=== PATIENT | male | born 1970 | race Caucasian/White ===

== ENCOUNTER 2021-04-14 21:33 | Inpatient (IN) | payer MEDICAID ==
[~2021-04-14] VITALS: Ht 185.4 cm; Wt 146.8 kg
[2021-04-14 22:16] LABS: GLUCOMETER DEV NAME(LOC) ERT.5; GLUCOSE,POINT OF CARE 255 MG/DL (70-110)
[2021-04-14 22:22] LABS: COVID AG,FIA SOURCE NASAL SWAB
[2021-04-14 23:17] LABS: BASOPHILS % (AUTO) 0.2 % (0.0-2.0); EOSINOPHILS % (AUTO) 0 % (1.0-6.0); HEMATOCRIT 38.8 % (41-53); HEMOGLOBIN 12.2 g/dL (13.5-17.5); LYMPHOCYTES # (AUTO) 1.1 K/uL (1.0-4.8); LYMPHOCYTES % (AUTO) 7.3 % (22.0-44.0); MEAN CORPUSCULAR HEMOGLOBIN 26.1 pg (26.0-34.0); MEAN CORPUSCULAR HGB CONC 31.4 G/dL (31.0-37.0); MEAN CORPUSCULAR VOLUME 83 fL (80-100); MONOCYTES # (AUTO) 1.1 K/uL (0.1-1.0); MONOCYTES % (AUTO) 7.5 % (2.0-9.0); NEUTROPHILS # (AUTO) 12.3 K/uL (1.8-7.7); PLATELET COUNT (AUTO) 244 K/uL (150-450); RED BLOOD CELL COUNT(AUTO) 4.67 MIL/uL (4.50-5.90); RED CELL DISTRIBUTION WIDTH 17.8 % (11.5-14.5)
[2021-04-14 23:25] LABS: CALCIUM, TOTAL 9.1 mg/dL (8.8-10.5); CREATININE 1.36 mg/dL (0.60-1.30); POTASSIUM 3.8 mmol/L (3.5-5.1)
[2021-04-14 23:28] LABS: INR 1.3 (0.9-1.1)
[2021-04-14 23:32] LABS: ALBUMIN 3.6 g/dL (3.4-5.0); TOTAL PROTEIN, SERUM 8.1 g/dL (6.4-8.2)
[2021-04-14] MEDS ORDERED: ONDANSETRON HCL 4 MG/2 ML VIAL IVP PRN (23:45)
[2021-04-15] MEDS ORDERED: HEPARIN SODIUM,PORCINE 5,000 UNITS/ML VIAL SQ SCH
[2021-04-15] MEDS ORDERED: SENN8.8S18 PO (00:13)
[2021-04-15] MEDS ORDERED: RIVA20TA PO (00:13)
[2021-04-15] MEDS ORDERED: LEVE500T8 PO (00:13)
[2021-04-15] MEDS ORDERED: [UNRECOGNIZED DRUG - OTHER] BU (00:13)
[2021-04-15] MEDS ORDERED: ATOR40TA71 PO (00:13)
[2021-04-15] MEDS ORDERED: LASIX BU (00:13)
[2021-04-15] MEDS ORDERED: INSLAN SQ (00:13)
[2021-04-15] MEDS ORDERED: solumedrol FLUSH (00:13)
[2021-04-15] MEDS ORDERED: VALS80TA2 PO (00:13)
[2021-04-15] MEDS ORDERED: SPIR-37 PO (00:13)
[2021-04-15] MEDS ORDERED: METO25TA3 PO (00:13)
[2021-04-15] MEDS ORDERED: IPRA3AMP24 NEB (00:13)
[2021-04-15] MEDS ORDERED: AMIO100T4 PO (00:13)
[2021-04-15] MEDS ORDERED: IPRATROPIUM BROMIDE 0.5 MG/2.5 ML NEB SOLUTION NEB PRN (00:30)
[2021-04-15] MEDS ORDERED: ALBUTEROL SULFATE 2.5 MG/0.5 ML NEB SOLUTION NEB PRN (00:30)
[2021-04-15] MEDS ORDERED: DEXTROSE 50%-WATER 25 GM/50 ML SYRINGE IVP PRN ×2 (00:30→05:30)
[2021-04-15 03:51] VITALS: BP 135/84
[2021-04-15] MEDS ORDERED: INFLUENZA VIRUS VACCINE QVS 2021-22 (6MO+)/PF 60 MCG/0.5 ML SYRINGE IM. ONE (05:15)
[2021-04-15] MEDS ORDERED: SENNA 218 MG/5 ML LIQUID ORAL.SYG PO SCH (06:00)
[2021-04-15 06:21] LABS: GLUCOMETER DEV NAME(LOC) 6N.1; GLUCOSE,POINT OF CARE 242 MG/DL (70-110)
[2021-04-15] MEDS: INSULIN LISPRO 100 UNITS/ML SQ PRN ×4 (06:45→21:44)
[2021-04-15 07:30] VITALS: BP 124/84
[2021-04-15 07:49] LABS: BASOPHILS % (AUTO) 0.2 % (0.0-2.0); EOSINOPHILS % (AUTO) 0.1 % (1.0-6.0); HEMATOCRIT 36.9 % (41-53); HEMOGLOBIN 11.8 g/dL (13.5-17.5); LYMPHOCYTES # (AUTO) 1.4 K/uL (1.0-4.8); LYMPHOCYTES % (AUTO) 10.9 % (22.0-44.0); MEAN CORPUSCULAR HEMOGLOBIN 26.6 pg (26.0-34.0); MEAN CORPUSCULAR HGB CONC 32.1 G/dL (31.0-37.0); MEAN CORPUSCULAR VOLUME 83 fL (80-100); MONOCYTES % (AUTO) 7.6 % (2.0-9.0); NEUTROPHILS # (AUTO) 10.3 K/uL (1.8-7.7); NEUTROPHILS % (AUTO) 81.2 % (40.0-70.0); PLATELET COUNT (AUTO) 211 K/uL (150-450); RED BLOOD CELL COUNT(AUTO) 4.44 MIL/uL (4.50-5.90); RED CELL DISTRIBUTION WIDTH 17.3 % (11.5-14.5)
[2021-04-15 08:04] LABS: CALCIUM, TOTAL 8.8 mg/dL (8.8-10.5); CREATININE 1.38 mg/dL (0.60-1.30); POTASSIUM 3.9 mmol/L (3.5-5.1)
[2021-04-15] MEDS: LevETIRAcetam 500 MG TABLET PO SCH ×2 (08:57→21:15)
[2021-04-15] MEDS: AMIODARONE HCL 200 MG TABLET PO SCH ×2 (08:57→21:20)
[2021-04-15] MEDS: VALSARTAN 80 MG TABLET PO SCH ×2 (08:57→21:00)
[2021-04-15] MEDS: SPIRONOLACTONE 25 MG TABLET PO SCH (08:58)
[2021-04-15] MEDS ORDERED: MISC MED-CONVERTED FROM AMBULATORY (Ipratropium/Albuterol Sulfate (Duoneb 2.5-0.5 Mg/3 Ml NEB SCH (09:00)
[2021-04-15] MEDS: METOPROLOL SUCCINATE 25 MG ER TABLET PO SCH (09:02)
[2021-04-15] MEDS: FUROSEMIDE 20 MG/2 ML VIAL IVP SCH ×2 (09:02→21:05)
[2021-04-15] MEDS: RIVAROXABAN 20 MG TABLET PO SCH ×2 (09:02→09:41)
[2021-04-15] MEDS: FAMOTIDINE 10 MG/ML 2 ML VIAL IVP SCH ×3 (09:03→21:15)
[2021-04-15] MEDS: MethylPREDNISolone SOD SUCC 40 MG/ML VIAL IVP SCH (09:03)
[2021-04-15 15:57] VITALS: BP 130/82
[2021-04-15 18:21] LABS: AMPHET/METH SCREEN,URINE POSITIVE (NEGATIVE); BARBITURATE SCREEN, URINE NEGATIVE (NEGATIVE); BENZODIAZEPINES SCREEN,URINE NEGATIVE (NEGATIVE); CANNABINOID SCREEN,URINE NEGATIVE (NEGATIVE); COCAINE SCREEN,URINE NEGATIVE (NEGATIVE); CREATININE,URINE RANDOM 115.1 mg/dL (30.0-125.0); METHADONE SCREEN, URINE NEGATIVE (NEGATIVE); OPIATE SCREEN,URINE NEGATIVE (NEGATIVE); SODIUM,URINE RANDOM 49 mmol/l (20-110)
[2021-04-15 18:22] LABS: APPEARANCE,URINE TURBID (CLEAR); GLUCOSE, URINE (UA) NEGATIVE (NEGATIVE); KETONES,URINE 40 mg/dL (NEGATIVE); LEUKOCYTE ESTERASE ,URINE LARGE (NEGATIVE); NITRATE,URINE POSITIVE (NEGATIVE); OCCULT BLOOD,URINE LARGE (NEGATIVE); PROTEIN,URINE SEE CONFIRM (NEGATIVE)
[2021-04-15 18:23] LABS: BILIRUBIN,URINE PRELIM. POSITIVE (NEGATIVE)
[2021-04-15 18:24] LABS: PHENCYCLIDINE SCREEN,URINE NEGATIVE (NEGATIVE)
[2021-04-15 18:41] LABS: BACTERIA,URINE None Seen /HPF (None Seen); RBC,URINE Full Field /HPF (0-2); WBC,URINE None Seen /HPF (0-5)
[2021-04-15 18:43] LABS: SULFOSALICYLIC ACID,URINE 4+ (Negative)
[2021-04-15 19:26] LABS: GLUCOMETER DEV NAME(LOC) 4E.2; GLUCOSE,POINT OF CARE 255 MG/DL (70-110)
[2021-04-15 19:39] VITALS: BP 113/71
[2021-04-15] MEDS ORDERED: RIVAROXABAN 20 MG TABLET PO SCH (21:00)
[2021-04-15] MEDS: ATORVASTATIN CALCIUM 40 MG TABLET PO SCH (21:04)
[2021-04-15] MEDS: ACETAMINOPHEN 325 MG TABLET PO PRN (21:06)
[2021-04-15] MEDS: INSULIN GLARGINE,HUM.REC.ANLOG 100 UNITS/ML SQ SCH (21:40)
[2021-04-15] MEDS ORDERED: OxyCODONE HCL/ACETAMINOPHEN 5-325 MG TABLET PO ONE (22:30)
[2021-04-16 05:17] VITALS: BP 121/61
[2021-04-16] MEDS: SENNOSIDES 8.8 MG/5 ML SYRUP ORAL.SYG PO SCH (06:30)
[2021-04-16 06:41] LABS: GLUCOMETER DEV NAME(LOC) 6N.2; GLUCOSE,POINT OF CARE 236 MG/DL (70-110)
[2021-04-16] MEDS: INSULIN LISPRO 100 UNITS/ML SQ PRN ×4 (06:44→21:06)
[2021-04-16 08:09] VITALS: BP 137/93
[2021-04-16] MEDS: AMIODARONE HCL 200 MG TABLET PO SCH ×2 (08:25→20:48)
[2021-04-16] MEDS: VALSARTAN 80 MG TABLET PO SCH ×2 (08:25→21:11)
[2021-04-16] MEDS: LevETIRAcetam 500 MG TABLET PO SCH ×2 (08:25→20:47)
[2021-04-16] MEDS: METOPROLOL SUCCINATE 25 MG ER TABLET PO SCH (08:26)
[2021-04-16] MEDS: SPIRONOLACTONE 25 MG TABLET PO SCH (08:26)
[2021-04-16] MEDS: RIVAROXABAN 20 MG TABLET PO SCH (08:26)
[2021-04-16] MEDS: MethylPREDNISolone SOD SUCC 40 MG/ML VIAL IVP SCH (08:27)
[2021-04-16] MEDS: FAMOTIDINE 10 MG/ML 2 ML VIAL IVP SCH ×2 (08:27→20:47)
[2021-04-16] MEDS: FUROSEMIDE 20 MG/2 ML VIAL IVP SCH ×2 (08:27→20:47)
[2021-04-16 09:31] LABS: GLUCOMETER DEV NAME(LOC) 6N.2; GLUCOSE,POINT OF CARE 182 MG/DL (70-110)
[2021-04-16 09:36] LABS: GLUCOMETER DEV NAME(LOC) 6N.1; GLUCOSE,POINT OF CARE 403 MG/DL (70-110)
[2021-04-16] MEDS ORDERED: PERFLUTREN PROTEIN-A MICROSPHERES 0.22 MG/ML 3 ML VIAL IVP ONE (10:30)
[2021-04-16 16:14] VITALS: BP 117/80
[2021-04-16] MEDS ORDERED: AMIO200T68 PO (16:17)
[2021-04-16] MEDS ORDERED: ATOR40TA28 PO (16:17)
[2021-04-16] MEDS ORDERED: TIOT4MIS3 IH (16:17)
[2021-04-16] MEDS ORDERED: METF-444 PO (16:17)
[2021-04-16] MEDS: ALPRAZolam 0.25 MG TABLET PO PRN (16:23)
[2021-04-16 20:47] VITALS: BP 128/79
[2021-04-16] MEDS: ATORVASTATIN CALCIUM 40 MG TABLET PO SCH (20:48)
[2021-04-16 21:01] LABS: GLUCOMETER DEV NAME(LOC) 6N.2; GLUCOSE,POINT OF CARE 265 MG/DL (70-110)
[2021-04-16 21:01] LABS: GLUCOMETER DEV NAME(LOC) 6N.1; GLUCOSE,POINT OF CARE 285 MG/DL (70-110)
[2021-04-16] MEDS: INSULIN GLARGINE,HUM.REC.ANLOG 100 UNITS/ML SQ SCH (21:06)
[2021-04-16 21:31] LABS: GLUCOMETER DEV NAME(LOC) 4E.2; GLUCOSE,POINT OF CARE 315 MG/DL (70-110)
[2021-04-16 23:00] LABS: BASOPHILS % (AUTO) 0.7 % (0.0-2.0); EOSINOPHILS % (AUTO) 0.1 % (1.0-6.0); HEMATOCRIT 37.7 % (41-53); MEAN CORPUSCULAR HEMOGLOBIN 26.2 pg (26.0-34.0); MEAN CORPUSCULAR HGB CONC 31.9 G/dL (31.0-37.0); MEAN CORPUSCULAR VOLUME 82 fL (80-100); MONOCYTES # (AUTO) 0.8 K/uL (0.1-1.0); MONOCYTES % (AUTO) 6.6 % (2.0-9.0); NEUTROPHILS # (AUTO) 10.3 K/uL (1.8-7.7); NEUTROPHILS % (AUTO) 84.6 % (40.0-70.0); PLATELET COUNT (AUTO) 221 K/uL (150-450); RED BLOOD CELL COUNT(AUTO) 4.59 MIL/uL (4.50-5.90); RED CELL DISTRIBUTION WIDTH 17.3 % (11.5-14.5)
[2021-04-16 23:10] LABS: ANION GAP 6 mmol/L (8-16); CARBON DIOXIDE 30 mmol/L (22-29); CHLORIDE 99 mmol/L (98-107); CREATININE 1.14 mg/dL (0.60-1.30); GLOMERULAR FILTR. RATE CALC > 60 mL/min (>60); GLUCOSE,RANDOM 309 mg/dL (70-110); POTASSIUM 4.9 mmol/L (3.5-5.1); SODIUM SERUM 135 mmol/L (136-145); UREA NITROGEN, BLOOD 28 mg/dL (7-18)
[2021-04-16 23:15] LABS: ALANINE AMINOTRANSFERASE 24 U/L (12-78); ALBUMIN 3.5 g/dL (3.4-5.0); ALKALINE PHOSPHATASE 123 U/L (46-116); ASPARTATE AMINOTRANSFERASE 14 U/L (15-37); BILIRUBIN,TOTAL 1.3 mg/dL (0.1-1.0); TOTAL PROTEIN, SERUM 7.4 g/dL (6.4-8.2)
[2021-04-16] MEDS: DOXYCYCLINE HYCLATE 100 MG in DEXTROSE 5%-WATER 100 ML IV SCH (23:58)
[2021-04-17 05:03] VITALS: BP 120/73
[2021-04-17] MEDS: SENNOSIDES 8.8 MG/5 ML SYRUP ORAL.SYG PO SCH (05:58)
[2021-04-17] MEDS: INSULIN LISPRO 100 UNITS/ML SQ PRN ×3 (06:31→17:21)
[2021-04-17 07:48] LABS: BASOPHILS % (AUTO) 0.1 % (0.0-2.0); EOSINOPHILS % (AUTO) 0.3 % (1.0-6.0); HEMATOCRIT 37.8 % (41-53); HEMOGLOBIN 12.2 g/dL (13.5-17.5); LYMPHOCYTES # (AUTO) 1.8 K/uL (1.0-4.8); LYMPHOCYTES % (AUTO) 15.1 % (22.0-44.0); MEAN CORPUSCULAR HEMOGLOBIN 26.5 pg (26.0-34.0); MEAN CORPUSCULAR HGB CONC 32.2 G/dL (31.0-37.0); MEAN CORPUSCULAR VOLUME 82 fL (80-100); MONOCYTES % (AUTO) 8.5 % (2.0-9.0); PLATELET COUNT (AUTO) 227 K/uL (150-450); RED CELL DISTRIBUTION WIDTH 17.3 % (11.5-14.5)
[2021-04-17 07:54] VITALS: BP 124/68
[2021-04-17 08:08] LABS: ALANINE AMINOTRANSFERASE 22 U/L (12-78); ALBUMIN 3.4 g/dL (3.4-5.0); ALKALINE PHOSPHATASE 120 U/L (46-116); ANION GAP 8 mmol/L (8-16); ASPARTATE AMINOTRANSFERASE 14 U/L (15-37); BILIRUBIN,TOTAL 1.5 mg/dL (0.1-1.0); CALCIUM, TOTAL 8.9 mg/dL (8.8-10.5); CARBON DIOXIDE 30 mmol/L (22-29); CHLORIDE 98 mmol/L (98-107); CREATININE 1.15 mg/dL (0.60-1.30); GLOMERULAR FILTR. RATE CALC > 60 mL/min (>60); GLUCOSE,RANDOM 259 mg/dL (70-110); POTASSIUM 3.9 mmol/L (3.5-5.1); SODIUM SERUM 136 mmol/L (136-145); TOTAL PROTEIN, SERUM 7.2 g/dL (6.4-8.2); UREA NITROGEN, BLOOD 26 mg/dL (7-18)
[2021-04-17] MEDS: METOPROLOL SUCCINATE 25 MG ER TABLET PO SCH (09:00)
[2021-04-17] MEDS: AMIODARONE HCL 200 MG TABLET PO SCH ×2 (09:14→21:22)
[2021-04-17] MEDS: VALSARTAN 80 MG TABLET PO SCH ×2 (09:14→21:23)
[2021-04-17] MEDS: LevETIRAcetam 500 MG TABLET PO SCH ×2 (09:14→21:22)
[2021-04-17] MEDS: RIVAROXABAN 20 MG TABLET PO SCH (09:14)
[2021-04-17] MEDS: FAMOTIDINE 10 MG/ML 2 ML VIAL IVP SCH ×2 (09:14→21:23)
[2021-04-17] MEDS ORDERED: SODIUM CHLORIDE 0.9% 500 ML IV ONE (10:23)
[2021-04-17] MEDS: DOXYCYCLINE HYCLATE 100 MG in DEXTROSE 5%-WATER 100 ML IV SCH (10:40)
[2021-04-17 11:06] VITALS: BP 104/60
[2021-04-17 11:51] LABS: GLUCOMETER DEV NAME(LOC) 6N.1; GLUCOSE,POINT OF CARE 383 MG/DL (70-110)
[2021-04-17] MEDS: MethylPREDNISolone SOD SUCC 40 MG/ML VIAL IVP SCH (12:05)
[2021-04-17] MEDS: ACETAMINOPHEN 325 MG TABLET PO PRN (12:34)
[2021-04-17] MEDS: CefTRIAXone 1 GM/DEXTROSE 50 ML IV SCH (12:39)
[2021-04-17] MEDS: ALPRAZolam 0.25 MG TABLET PO PRN (13:07)
[2021-04-17] MEDS: SPIRONOLACTONE 25 MG TABLET PO SCH (13:13)
[2021-04-17] MEDS: FUROSEMIDE 20 MG/2 ML VIAL IVP SCH ×2 (13:13→21:23)
[2021-04-17 13:20] VITALS: BP_SYST 126; BP_SYST 131; BP_DIAS 72; BP_DIAS 85
[2021-04-17 17:26] LABS: GLUCOMETER DEV NAME(LOC) 4E.2; GLUCOSE,POINT OF CARE 284 MG/DL (70-110)
[2021-04-17 19:26] LABS: GLUCOMETER DEV NAME(LOC) 4E.2; GLUCOSE,POINT OF CARE 229 MG/DL (70-110)
[2021-04-17 20:12] VITALS: BP 106/36
[2021-04-17 20:51] LABS: GLUCOMETER DEV NAME(LOC) 4E.2; GLUCOSE,POINT OF CARE 370 MG/DL (70-110)
[2021-04-17] MEDS: INSULIN GLARGINE,HUM.REC.ANLOG 100 UNITS/ML SQ SCH (21:13)
[2021-04-17] MEDS: ATORVASTATIN CALCIUM 40 MG TABLET PO SCH (21:22)
[2021-04-17 23:39] VITALS: BP 115/84
[2021-04-18] MEDS: DOXYCYCLINE HYCLATE 100 MG in DEXTROSE 5%-WATER 100 ML IV SCH ×3 (00:29→23:12)
[2021-04-18 04:45] VITALS: BP 115/72
[2021-04-18] MEDS: INSULIN LISPRO 100 UNITS/ML SQ PRN ×3 (06:27→20:39)
[2021-04-18] MEDS: SENNOSIDES 8.8 MG/5 ML SYRUP ORAL.SYG PO SCH (06:31)
[2021-04-18 06:36] LABS: GLUCOMETER DEV NAME(LOC) 6N.1; GLUCOSE,POINT OF CARE 260 MG/DL (70-110)
[2021-04-18] MEDS: LevETIRAcetam 500 MG TABLET PO SCH ×2 (08:40→20:31)
[2021-04-18] MEDS: RIVAROXABAN 20 MG TABLET PO SCH (08:42)
[2021-04-18] MEDS: FAMOTIDINE 10 MG/ML 2 ML VIAL IVP SCH ×2 (08:42→20:30)
[2021-04-18 08:44] VITALS: BP 120/74
[2021-04-18] MEDS: INSULIN GLARGINE,HUM.REC.ANLOG 100 UNITS/ML SQ SCH ×2 (08:45→20:38)
[2021-04-18] MEDS: METOPROLOL SUCCINATE 25 MG ER TABLET PO SCH (08:46)
[2021-04-18 08:47] VITALS: BP 104/69
[2021-04-18] MEDS: CefTRIAXone 1 GM/DEXTROSE 50 ML IV SCH (11:33)
[2021-04-18 11:36] LABS: GLUCOMETER DEV NAME(LOC) 6N.2; GLUCOSE,POINT OF CARE 255 MG/DL (70-110)
[2021-04-18] MEDS: SPIRONOLACTONE 25 MG TABLET PO SCH (11:41)
[2021-04-18] MEDS: FUROSEMIDE 20 MG/2 ML VIAL IVP SCH ×2 (11:41→20:28)
[2021-04-18] MEDS: AMIODARONE HCL 200 MG TABLET PO SCH ×2 (11:41→20:30)
[2021-04-18] MEDS: VALSARTAN 80 MG TABLET PO SCH ×2 (11:42→20:30)
[2021-04-18 11:55] LABS: BASOPHILS % (AUTO) 0.1 % (0.0-2.0); EOSINOPHILS % (AUTO) 0.3 % (1.0-6.0); HEMATOCRIT 36.5 % (41-53); HEMOGLOBIN 11.9 g/dL (13.5-17.5); LYMPHOCYTES # (AUTO) 1.6 K/uL (1.0-4.8); LYMPHOCYTES % (AUTO) 14.8 % (22.0-44.0); MEAN CORPUSCULAR HEMOGLOBIN 26.7 pg (26.0-34.0); MEAN CORPUSCULAR HGB CONC 32.7 G/dL (31.0-37.0); MEAN CORPUSCULAR VOLUME 82 fL (80-100); MONOCYTES # (AUTO) 0.8 K/uL (0.1-1.0); MONOCYTES % (AUTO) 7.6 % (2.0-9.0); NEUTROPHILS # (AUTO) 8.3 K/uL (1.8-7.7); NEUTROPHILS % (AUTO) 77.2 % (40.0-70.0); PLATELET COUNT (AUTO) 207 K/uL (150-450); RED BLOOD CELL COUNT(AUTO) 4.47 MIL/uL (4.50-5.90); RED CELL DISTRIBUTION WIDTH 17.2 % (11.5-14.5)
[2021-04-18 12:06] LABS: GLUCOMETER DEV NAME(LOC) 6N.1; GLUCOSE,POINT OF CARE 106 MG/DL (70-110)
[2021-04-18 12:16] LABS: ALANINE AMINOTRANSFERASE 27 U/L (12-78); ALBUMIN 3.3 g/dL (3.4-5.0); ALKALINE PHOSPHATASE 115 U/L (46-116); ANION GAP 8 mmol/L (8-16); ASPARTATE AMINOTRANSFERASE 16 U/L (15-37); BILIRUBIN,TOTAL 1.3 mg/dL (0.1-1.0); CARBON DIOXIDE 31 mmol/L (22-29); CHLORIDE 99 mmol/L (98-107); CREATININE 1.03 mg/dL (0.60-1.30); GLOMERULAR FILTR. RATE CALC > 60 mL/min (>60); GLUCOSE,RANDOM 189 mg/dL (70-110); POTASSIUM 3.9 mmol/L (3.5-5.1); SODIUM SERUM 138 mmol/L (136-145); TOTAL PROTEIN, SERUM 7.1 g/dL (6.4-8.2); UREA NITROGEN, BLOOD 24 mg/dL (7-18)
[2021-04-18] MEDS: ACETAMINOPHEN 325 MG TABLET PO PRN ×2 (12:33→19:49)
[2021-04-18] MEDS: ALPRAZolam 0.25 MG TABLET PO PRN ×2 (12:37→19:46)
[2021-04-18 14:29] VITALS: BP 142/85
[2021-04-18 19:06] LABS: GLUCOMETER DEV NAME(LOC) 4E.2; GLUCOSE,POINT OF CARE 234 MG/DL (70-110)
[2021-04-18 19:52] VITALS: BP 105/59
[2021-04-18] MEDS: ATORVASTATIN CALCIUM 40 MG TABLET PO SCH (20:30)
[2021-04-18] MEDS: ALBUTEROL SULFATE 2.5 MG/0.5 ML NEB SOLUTION NEB PRN (21:05)
[2021-04-18] MEDS: IPRATROPIUM BROMIDE 0.5 MG/2.5 ML NEB SOLUTION NEB PRN (21:05)
[2021-04-18 21:46] LABS: GLUCOMETER DEV NAME(LOC) 4E.2; GLUCOSE,POINT OF CARE 298 MG/DL (70-110)
[2021-04-19] MEDS: ALPRAZolam 0.25 MG TABLET PO PRN (03:36)
[2021-04-19 04:36] VITALS: BP 103/56
[2021-04-19] MEDS: IPRATROPIUM BROMIDE 0.5 MG/2.5 ML NEB SOLUTION NEB PRN (05:45)
[2021-04-19] MEDS: ALBUTEROL SULFATE 2.5 MG/0.5 ML NEB SOLUTION NEB PRN (05:45)
[2021-04-19] MEDS: SENNOSIDES 8.8 MG/5 ML SYRUP ORAL.SYG PO SCH (06:30)
[2021-04-19] MEDS: INSULIN LISPRO 100 UNITS/ML SQ PRN ×2 (06:35→22:01)
[2021-04-19 07:06] LABS: GLUCOMETER DEV NAME(LOC) 4E.2; GLUCOSE,POINT OF CARE 319 MG/DL (70-110)
[2021-04-19 07:54] VITALS: BP 107/65
[2021-04-19 10:58] LABS: BASOPHILS % (AUTO) 0.4 % (0.0-2.0); EOSINOPHILS % (AUTO) 1.5 % (1.0-6.0); HEMOGLOBIN 11.8 g/dL (13.5-17.5); LYMPHOCYTES # (AUTO) 1.3 K/uL (1.0-4.8); LYMPHOCYTES % (AUTO) 15.3 % (22.0-44.0); MEAN CORPUSCULAR HEMOGLOBIN 26.3 pg (26.0-34.0); MEAN CORPUSCULAR VOLUME 82 fL (80-100); MONOCYTES # (AUTO) 0.9 K/uL (0.1-1.0); MONOCYTES % (AUTO) 10.5 % (2.0-9.0); NEUTROPHILS # (AUTO) 6.3 K/uL (1.8-7.7); NEUTROPHILS % (AUTO) 72.3 % (40.0-70.0); PLATELET COUNT (AUTO) 195 K/uL (150-450); RED CELL DISTRIBUTION WIDTH 17.5 % (11.5-14.5)
[2021-04-19 11:18] LABS: ALANINE AMINOTRANSFERASE 37 U/L (12-78); ALBUMIN 3.3 g/dL (3.4-5.0); ALKALINE PHOSPHATASE 125 U/L (46-116); ANION GAP 9 mmol/L (8-16); ASPARTATE AMINOTRANSFERASE 15 U/L (15-37); CALCIUM, TOTAL 8.9 mg/dL (8.8-10.5); CARBON DIOXIDE 30 mmol/L (22-29); CHLORIDE 98 mmol/L (98-107); CREATININE 1.11 mg/dL (0.60-1.30); GLOMERULAR FILTR. RATE CALC > 60 mL/min (>60); GLUCOSE,RANDOM 253 mg/dL (70-110); SODIUM SERUM 137 mmol/L (136-145); TOTAL PROTEIN, SERUM 7.1 g/dL (6.4-8.2); UREA NITROGEN, BLOOD 23 mg/dL (7-18)
[2021-04-19] MEDS ORDERED: SODIUM CHLORIDE 0.9% 250 ML IV ONE (11:18)
[2021-04-19] MEDS: VALSARTAN 80 MG TABLET PO SCH ×2 (11:26→21:54)
[2021-04-19] MEDS: AMIODARONE HCL 200 MG TABLET PO SCH ×2 (11:27→21:01)
[2021-04-19] MEDS: METOPROLOL SUCCINATE 25 MG ER TABLET PO SCH (11:27)
[2021-04-19] MEDS: RIVAROXABAN 20 MG TABLET PO SCH (11:27)
[2021-04-19] MEDS: FAMOTIDINE 10 MG/ML 2 ML VIAL IVP SCH ×2 (11:27→21:54)
[2021-04-19] MEDS: FUROSEMIDE 20 MG/2 ML VIAL IVP SCH ×2 (11:28→21:07)
[2021-04-19] MEDS: SPIRONOLACTONE 25 MG TABLET PO SCH (11:28)
[2021-04-19] MEDS: LevETIRAcetam 500 MG TABLET PO SCH ×2 (11:28→21:01)
[2021-04-19] MEDS: DOXYCYCLINE HYCLATE 100 MG in DEXTROSE 5%-WATER 100 ML IV SCH ×2 (11:29→23:21)
[2021-04-19] MEDS: CefTRIAXone 1 GM/DEXTROSE 50 ML IV SCH (11:29)
[2021-04-19] MEDS: INSULIN GLARGINE,HUM.REC.ANLOG 100 UNITS/ML SQ SCH ×2 (11:35→21:59)
[2021-04-19 13:56] VITALS: BP 126/80
[2021-04-19 17:47] LABS: GLUCOMETER DEV NAME(LOC) 6N.2; GLUCOSE,POINT OF CARE 215 MG/DL (70-110)
[2021-04-19 19:30] VITALS: BP 119/62
[2021-04-19 19:41] LABS: GLUCOMETER DEV NAME(LOC) 6N.1; GLUCOSE,POINT OF CARE 137 MG/DL (70-110)
[2021-04-19] MEDS: ATORVASTATIN CALCIUM 40 MG TABLET PO SCH (21:07)
[2021-04-19 21:41] LABS: GLUCOMETER DEV NAME(LOC) 6N.2; GLUCOSE,POINT OF CARE 258 MG/DL (70-110)
[2021-04-20] MEDS: ALPRAZolam 0.25 MG TABLET PO PRN ×2 (01:46→21:50)
[2021-04-20 03:30] VITALS: BP 123/75
[2021-04-20 04:30] VITALS: BP 110/57
[2021-04-20] MEDS: INSULIN LISPRO 100 UNITS/ML SQ PRN ×3 (05:55→19:50)
[2021-04-20] MEDS: SENNOSIDES 8.8 MG/5 ML SYRUP ORAL.SYG PO SCH (06:01)
[2021-04-20 07:13] LABS: BASOPHILS % (AUTO) 0.4 % (0.0-2.0); EOSINOPHILS % (AUTO) 2.6 % (1.0-6.0); HEMATOCRIT 36.7 % (41-53); LYMPHOCYTES # (AUTO) 1.5 K/uL (1.0-4.8); LYMPHOCYTES % (AUTO) 17.6 % (22.0-44.0); MEAN CORPUSCULAR HEMOGLOBIN 26.6 pg (26.0-34.0); MEAN CORPUSCULAR HGB CONC 32.6 G/dL (31.0-37.0); MEAN CORPUSCULAR VOLUME 82 fL (80-100); MONOCYTES # (AUTO) 0.9 K/uL (0.1-1.0); MONOCYTES % (AUTO) 10.5 % (2.0-9.0); NEUTROPHILS % (AUTO) 68.9 % (40.0-70.0); PLATELET COUNT (AUTO) 207 K/uL (150-450); RED CELL DISTRIBUTION WIDTH 17.6 % (11.5-14.5)
[2021-04-20 07:27] LABS: ALANINE AMINOTRANSFERASE 38 U/L (12-78); ALBUMIN 3.4 g/dL (3.4-5.0); ALKALINE PHOSPHATASE 126 U/L (46-116); ANION GAP 6 mmol/L (8-16); ASPARTATE AMINOTRANSFERASE 16 U/L (15-37); CALCIUM, TOTAL 8.9 mg/dL (8.8-10.5); CARBON DIOXIDE 31 mmol/L (22-29); CHLORIDE 97 mmol/L (98-107); CREATININE 1.02 mg/dL (0.60-1.30); GLOMERULAR FILTR. RATE CALC > 60 mL/min (>60); GLUCOSE,RANDOM 229 mg/dL (70-110); POTASSIUM 4.2 mmol/L (3.5-5.1); SODIUM SERUM 134 mmol/L (136-145); TOTAL PROTEIN, SERUM 7.2 g/dL (6.4-8.2); UREA NITROGEN, BLOOD 21 mg/dL (7-18)
[2021-04-20 08:15] VITALS: BP 129/71
[2021-04-20] MEDS: CefTRIAXone 1 GM/DEXTROSE 50 ML IV SCH (10:51)
[2021-04-20] MEDS: DOXYCYCLINE HYCLATE 100 MG in DEXTROSE 5%-WATER 100 ML IV SCH ×2 (10:53→22:42)
[2021-04-20] MEDS: LevETIRAcetam 500 MG TABLET PO SCH ×2 (10:54→20:56)
[2021-04-20] MEDS: METOPROLOL SUCCINATE 25 MG ER TABLET PO SCH (10:54)
[2021-04-20] MEDS: AMIODARONE HCL 200 MG TABLET PO SCH ×2 (10:54→20:56)
[2021-04-20] MEDS: VALSARTAN 80 MG TABLET PO SCH ×2 (10:54→21:50)
[2021-04-20] MEDS: FAMOTIDINE 10 MG/ML 2 ML VIAL IVP SCH ×2 (10:55→20:48)
[2021-04-20] MEDS: FUROSEMIDE 20 MG/2 ML VIAL IVP SCH ×2 (10:55→20:47)
[2021-04-20] MEDS: ATORVASTATIN CALCIUM 40 MG TABLET PO SCH (10:55)
[2021-04-20] MEDS: SPIRONOLACTONE 25 MG TABLET PO SCH (10:55)
[2021-04-20] MEDS: RIVAROXABAN 20 MG TABLET PO SCH (11:14)
[2021-04-20] MEDS: INSULIN GLARGINE,HUM.REC.ANLOG 100 UNITS/ML SQ SCH ×2 (11:17→19:49)
[2021-04-20 11:31] LABS: GLUCOMETER DEV NAME(LOC) 4E.2; GLUCOSE,POINT OF CARE 197 MG/DL (70-110)
[2021-04-20 15:56] VITALS: BP 110/77
[2021-04-20 17:15] LABS: GLUCOMETER DEV NAME(LOC) 6N.2; GLUCOSE,POINT OF CARE 265 MG/DL (70-110)
[2021-04-20 19:29] VITALS: BP 102/56
[2021-04-20 19:56] LABS: GLUCOMETER DEV NAME(LOC) 6N.2; GLUCOSE,POINT OF CARE 216 MG/DL (70-110)
[2021-04-20] MEDS: ACETAMINOPHEN 325 MG TABLET PO PRN (20:57)
[2021-04-21 03:05] VITALS: BP 114/76
[2021-04-21] MEDS: SENNOSIDES 8.8 MG/5 ML SYRUP ORAL.SYG PO SCH (05:48)
[2021-04-21] MEDS: INSULIN LISPRO 100 UNITS/ML SQ PRN ×3 (05:50→20:34)
[2021-04-21 06:12] LABS: GLUCOMETER DEV NAME(LOC) 6N.2; GLUCOSE,POINT OF CARE 168 MG/DL (70-110)
[2021-04-21 06:39] LABS: BASOPHILS % (AUTO) 0.2 % (0.0-2.0); EOSINOPHILS % (AUTO) 3.5 % (1.0-6.0); HEMATOCRIT 35.6 % (41-53); HEMOGLOBIN 11.5 g/dL (13.5-17.5); LYMPHOCYTES # (AUTO) 1.7 K/uL (1.0-4.8); LYMPHOCYTES % (AUTO) 20.7 % (22.0-44.0); MEAN CORPUSCULAR HEMOGLOBIN 26.6 pg (26.0-34.0); MEAN CORPUSCULAR HGB CONC 32.3 G/dL (31.0-37.0); MEAN CORPUSCULAR VOLUME 82 fL (80-100); MONOCYTES # (AUTO) 0.9 K/uL (0.1-1.0); MONOCYTES % (AUTO) 11.8 % (2.0-9.0); NEUTROPHILS # (AUTO) 5.1 K/uL (1.8-7.7); NEUTROPHILS % (AUTO) 63.8 % (40.0-70.0); PLATELET COUNT (AUTO) 207 K/uL (150-450); RED BLOOD CELL COUNT(AUTO) 4.33 MIL/uL (4.50-5.90); RED CELL DISTRIBUTION WIDTH 17.2 % (11.5-14.5)
[2021-04-21 07:21] LABS: ALANINE AMINOTRANSFERASE 41 U/L (12-78); ALBUMIN 3.4 g/dL (3.4-5.0); ALKALINE PHOSPHATASE 131 U/L (46-116); ANION GAP 4 mmol/L (8-16); ASPARTATE AMINOTRANSFERASE 24 U/L (15-37); BILIRUBIN,TOTAL 1.1 mg/dL (0.1-1.0); CALCIUM, TOTAL 8.9 mg/dL (8.8-10.5); CARBON DIOXIDE 33 mmol/L (22-29); CHLORIDE 98 mmol/L (98-107); CREATININE 1.16 mg/dL (0.60-1.30); GLOMERULAR FILTR. RATE CALC > 60 mL/min (>60); GLUCOSE,RANDOM 186 mg/dL (70-110); POTASSIUM 4.1 mmol/L (3.5-5.1); SODIUM SERUM 135 mmol/L (136-145); TOTAL PROTEIN, SERUM 7.3 g/dL (6.4-8.2); UREA NITROGEN, BLOOD 19 mg/dL (7-18)
[2021-04-21 07:30] VITALS: BP 124/84
[2021-04-21 07:54] VITALS: BP 117/75
[2021-04-21] MEDS: LevETIRAcetam 500 MG TABLET PO SCH ×2 (10:36→20:00)
[2021-04-21] MEDS: SPIRONOLACTONE 25 MG TABLET PO SCH (10:36)
[2021-04-21] MEDS: FAMOTIDINE 10 MG/ML 2 ML VIAL IVP SCH ×2 (10:36→20:01)
[2021-04-21] MEDS: AMIODARONE HCL 200 MG TABLET PO SCH ×2 (10:36→20:01)
[2021-04-21] MEDS: VALSARTAN 80 MG TABLET PO SCH ×2 (10:36→20:00)
[2021-04-21] MEDS: METOPROLOL SUCCINATE 25 MG ER TABLET PO SCH (10:36)
[2021-04-21] MEDS: RIVAROXABAN 20 MG TABLET PO SCH (10:36)
[2021-04-21] MEDS: FUROSEMIDE 20 MG/2 ML VIAL IVP SCH (10:36)
[2021-04-21] MEDS: DOXYCYCLINE HYCLATE 100 MG in DEXTROSE 5%-WATER 100 ML IV SCH (10:37)
[2021-04-21] MEDS: CefTRIAXone 1 GM/DEXTROSE 50 ML IV SCH (10:37)
[2021-04-21] MEDS: ATORVASTATIN CALCIUM 40 MG TABLET PO SCH (10:37)
[2021-04-21] MEDS: INSULIN GLARGINE,HUM.REC.ANLOG 100 UNITS/ML SQ SCH ×2 (10:47→20:32)
[2021-04-21 11:56] LABS: GLUCOMETER DEV NAME(LOC) 6N.2; GLUCOSE,POINT OF CARE 246 MG/DL (70-110)
[2021-04-21 16:07] VITALS: BP 115/76
[2021-04-21] MEDS: FUROSEMIDE 40 MG TABLET PO SCH (20:00)
[2021-04-21 20:01] LABS: GLUCOMETER DEV NAME(LOC) 6N.2; GLUCOSE,POINT OF CARE 133 MG/DL (70-110)
[2021-04-21 20:04] VITALS: BP 134/95
[2021-04-21 20:11] LABS: GLUCOMETER DEV NAME(LOC) 6N.1; GLUCOSE,POINT OF CARE 256 MG/DL (70-110)
[2021-04-21 22:16] LABS: GLUCOMETER DEV NAME(LOC) 4E.2; GLUCOSE,POINT OF CARE 191 MG/DL (70-110)
[2021-04-22] MEDS: DOXYCYCLINE HYCLATE 100 MG in DEXTROSE 5%-WATER 100 ML IV SCH (00:48)
[2021-04-22 04:51] VITALS: BP_SYST 105; BP_SYST 98; BP_DIAS 55; BP_DIAS 63
[2021-04-22] MEDS: SENNOSIDES 8.8 MG/5 ML SYRUP ORAL.SYG PO SCH (06:10)
[2021-04-22] MEDS: INSULIN LISPRO 100 UNITS/ML SQ PRN ×2 (06:18→11:59)
[2021-04-22 07:26] LABS: GLUCOMETER DEV NAME(LOC) 6N.1; GLUCOSE,POINT OF CARE 174 MG/DL (70-110)
[2021-04-22 07:52] VITALS: BP 136/81
[2021-04-22 08:50] LABS: BASOPHILS % (AUTO) 0.7 % (0.0-2.0); EOSINOPHILS % (AUTO) 2.6 % (1.0-6.0); HEMATOCRIT 34.1 % (41-53); HEMOGLOBIN 11.4 g/dL (13.5-17.5); LYMPHOCYTES # (AUTO) 1.5 K/uL (1.0-4.8); LYMPHOCYTES % (AUTO) 19.1 % (22.0-44.0); MEAN CORPUSCULAR HEMOGLOBIN 27.1 pg (26.0-34.0); MEAN CORPUSCULAR HGB CONC 33.4 G/dL (31.0-37.0); MEAN CORPUSCULAR VOLUME 81 fL (80-100); MONOCYTES # (AUTO) 0.9 K/uL (0.1-1.0); MONOCYTES % (AUTO) 10.8 % (2.0-9.0); NEUTROPHILS # (AUTO) 5.3 K/uL (1.8-7.7); NEUTROPHILS % (AUTO) 66.8 % (40.0-70.0); PLATELET COUNT (AUTO) 191 K/uL (150-450); RED CELL DISTRIBUTION WIDTH 17.3 % (11.5-14.5)
[2021-04-22] MEDS: METOPROLOL SUCCINATE 25 MG ER TABLET PO SCH (08:53)
[2021-04-22] MEDS: FUROSEMIDE 40 MG TABLET PO SCH (08:53)
[2021-04-22] MEDS: AMIODARONE HCL 200 MG TABLET PO SCH (08:53)
[2021-04-22] MEDS: SPIRONOLACTONE 25 MG TABLET PO SCH (08:53)
[2021-04-22] MEDS: LevETIRAcetam 500 MG TABLET PO SCH (08:53)
[2021-04-22] MEDS: VALSARTAN 80 MG TABLET PO SCH (08:54)
[2021-04-22] MEDS: RIVAROXABAN 20 MG TABLET PO SCH (08:54)
[2021-04-22 09:02] LABS: ALBUMIN 3.4 g/dL (3.4-5.0); CALCIUM, TOTAL 8.8 mg/dL (8.8-10.5); CREATININE 1.3 mg/dL (0.60-1.30); POTASSIUM 4.3 mmol/L (3.5-5.1); TOTAL PROTEIN, SERUM 7.3 g/dL (6.4-8.2)
[2021-04-22] MEDS: INSULIN GLARGINE,HUM.REC.ANLOG 100 UNITS/ML SQ SCH (09:12)
[2021-04-22] MEDS: FAMOTIDINE 10 MG/ML 2 ML VIAL IVP SCH (12:05)
[2021-04-22 12:36] LABS: GLUCOMETER DEV NAME(LOC) 6N.1; GLUCOSE,POINT OF CARE 164 MG/DL (70-110)
== END 2021-04-22 13:50 | disposition home or self-care (01) | DRG 194 ==
LOC: EMS 21:40 → 6N 04-15 02:00
PROVIDERS: ADMIT Internal Medicine; ATTEND Internal Medicine
DX: I13.0 Hypertensive heart and chronic kidney disease with heart failure and stage 1 through stage 4 chronic kidney disease, or unspecified chronic kidney disease (principal); J96.01 Acute respiratory failure with hypoxia; R65.11 Systemic inflammatory response syndrome (SIRS) of non-infectious origin with acute organ dysfunction; J44.1 Chronic obstructive pulmonary disease with (acute) exacerbation; I82.512 Chronic embolism and thrombosis of left femoral vein; E11.22 Type 2 diabetes mellitus with diabetic chronic kidney disease; L03.119 Cellulitis of unspecified part of limb; I50.23 Acute on chronic systolic (congestive) heart failure; N17.9 Acute kidney failure, unspecified; E11.51 Type 2 diabetes mellitus with diabetic peripheral angiopathy without gangrene; E11.65 Type 2 diabetes mellitus with hyperglycemia; E66.01 Morbid (severe) obesity due to excess calories; F17.200 Nicotine dependence, unspecified, uncomplicated; E78.5 Hyperlipidemia, unspecified; G40.909 Epilepsy, unspecified, not intractable, without status epilepticus; I25.5 Ischemic cardiomyopathy; I87.009 Postthrombotic syndrome without complications of unspecified extremity; N18.30 Chronic kidney disease, stage 3 unspecified; E11.40 Type 2 diabetes mellitus with diabetic neuropathy, unspecified; I25.10 Atherosclerotic heart disease of native coronary artery without angina pectoris; F15.10 Other stimulant abuse, uncomplicated; Z20.822 Contact with and (suspected) exposure to COVID-19; Z79.01 Long term (current) use of anticoagulants; Z68.41 Body mass index [BMI] 40.0-44.9, adult; Z86.711 Personal history of pulmonary embolism; Z91.14 Patient's other noncompliance with medication regimen; Z91.19 Patient's noncompliance with other medical treatment and regimen; Z95.1 Presence of aortocoronary bypass graft; Z95.810 Presence of automatic (implantable) cardiac defibrillator; Z95.828 Presence of other vascular implants and grafts; Z68.42 Body mass index [BMI] 45.0-49.9, adult
CPT/HCPCS: 51701; 71045; 76700; 80048; 80053; 80307; 81001; 81002; 82550; 82570; 82962; 83036; 83880; 84300; 84484; 85025; 85610; 85730; 93005; 93306; 93925; 93970; 94640; 99285; C8924; J0696; J1815; J1940; J2920; J3490; J7040; J7050; J7060; Q9967; 36415-L1; 36415-TC; J7613